=== PATIENT | female | born 1990 | race Caucasian/White ===

== ENCOUNTER 2017-12-09 05:46 | Emergency (ER) | payer OTHER, SELFPAY ==
[2017-12-09] MEDS ORDERED: Ketorolac Tromethamine 30 MG/ML VIAL ONE (06:18)
[2017-12-09] MEDS ORDERED: Ondansetron HCl/PF 4 MG/2 ML Vial ONE (06:18)
[2017-12-09 06:26] LABS: #Basophils 0.1 thou/uL (0.0-0.2); #Lymphocytes 0.6 thou/uL (1.20-3.40); #Monocytes 0.4 thou/uL (0.11-0.59); #Neutrophils 8.5 thou/uL (1.40-6.50); %Basophils 0.7 % (0.0-1.0); %Eosinophils 0.3 % (0.0-10.0); %Lymphocytes 5.8 % (21.0-51.0); %Monocytes 4.2 % (0.0-10.0); Hemoglobin 13.3 g/dL (12.0-16.0); Mean Corpuscular HGB CONC 32.5 g/dL (32.0-36.0); Mean Corpuscular Hemoglobin 26.2 pg (27.0-31.0); Mean Corpuscular Volume 80.7 fL (78.0-98.0); Mean Platelet Volume 6.9 fL (7.4-10.4); Platelet Count 295 thou/uL (130-400); RBC Distribution Width 17.4 % (11.5-14.5); Red Blood Cell (RBC) Count 5.08 mill/uL (4.20-5.40); White Blood Cell (WBC) Count 9.5 thou/uL (4.8-10.8)
[2017-12-09] MEDS ORDERED: Sodium Chloride 0.9% 1,000 ML BAG ONE (06:36)
[2017-12-09 06:44] LABS: ALT (SGPT) 31 U/L (8-55); AST (SGOT) 27 U/L (5-34); Albumin 4.5 g/dL (3.5-5.0); Alkaline Phosphatase 110 U/L (40-150); Anion Gap 15 mmol/L (10-20); BUN (Urea Nitrogen) 8 mg/dL (7.0-18.7); Bilirubin, Total 0.8 mg/dL (0.2-1.2); Calc. Creatinine Clearance 0 mL/min (70-130); Calcium 9.3 mg/dL (7.8-10.44); Carbon Dioxide 21 mmol/L (22-29); Chloride 108 mmol/L (98-107); Estimated GFR-MDRD 78; Globulin 3.8 g/dL (2.4-3.5); Glucose 116 mg/dL (70-105); Lipase 9 U/L (8-78); Protein, Total 8.3 g/dL (6.0-8.3); Sodium 140 mmol/L (136-145)
[2017-12-09] MEDS ORDERED: Midazolam HCl 10 mg/2 ml Vial ONE (06:51)
== END 2017-12-09 07:10 | disposition home or self-care (01) ==
LOC: MADERS 05:46
DX: K52.9 Noninfective gastroenteritis and colitis, unspecified (principal)
CPT/HCPCS: 80053; 83605; 83690; 85025; 96361; 96374; 96375; J1885; J2250; J2405; J7050

== ENCOUNTER 2018-09-25 21:26 | Emergency (ER) | payer MEDICAID, SELFPAY ==
[2018-09-25 21:57] LABS: Bilirubin Negative (Negative); Blood, Urine Large (Negative); Clarity Slightly Cloudy (Clear); Glucose, Urine (Dipstick) Negative (Negative); Leukocyte Small (Negative); Nitrite Negative (Negative); Protein, Urine (Dipstick) > or equal to 300 mg/dL (Neg-Trace); Urobilinogen 0.2 mg/dL (Less than 2)
[2018-09-25 22:00] LABS: Pregnancy Test - Urine (BHCG) Negative (Negative)
[2018-09-25] MEDS ORDERED: Morphine 4 MG/ML VIAL ONE (22:00)
[2018-09-25] MEDS ORDERED: Ondansetron ODT 4 MG TAB ONE (22:00)
[2018-09-25 22:01] LABS: Pregu Control Background? CLEAR/WHITE (CLR/WHITE); Pregu Control Bar Appear? YES (CONTROL BAR); Specific Gravity 1.015 (1.002-1.036)
[2018-09-25 22:04] LABS: RBC/HPF Greater than 50 HPF (0-3)
[2018-09-25 22:05] LABS: Bacteria/HPF 1+ HPF (None Seen); Squamous Epithelial 0-3 HPF (0-3)
[2018-09-25] MEDS ORDERED: cefTRIAXone\\ROCEPHIN 1 GM VIAL ONE (22:19)
== END 2018-09-25 22:35 | disposition home or self-care (01) ==
LOC: MADERS 21:26
DX: N12 Tubulo-interstitial nephritis, not specified as acute or chronic (principal); R11.0 Nausea
CPT/HCPCS: 81003; 81015; 81025; 96372; J0696; J2270; Q0162

== ENCOUNTER 2019-07-24 10:24 | Emergency (ER) | payer MEDICAID, SELFPAY ==
[2019-07-24] MEDS ORDERED: Acetaminophen 500 MG TAB ONE (11:13)
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
[2019-07-24] MEDS ORDERED: Ketorolac Tromethamine 30 MG/ML VIAL ONE (11:44)
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
== END 2019-07-24 12:10 | disposition home or self-care (01) ==
LOC: MADERS 10:24
DX: S00.03XA Contusion of scalp, initial encounter (principal); S60.221A Contusion of right hand, initial encounter; S50.11XA Contusion of right forearm, initial encounter; S40.012A Contusion of left shoulder, initial encounter; Y04.0XXA Assault by unarmed brawl or fight, initial encounter
CPT/HCPCS: 70450; 96372; J1885

== ENCOUNTER 2020-01-22 10:14 | Emergency (ER) | payer OTHER, SELFPAY ==
--- NOTE | 2020-01-22 11:47 | RAD ---
Portable frontal chest radiograph: 01/22/2020 COMPARISON: None HISTORY: Cough FINDINGS: Lungs are clear. Heart and mediastinal contours appear within normal limits. IMPRESSION: No acute findings.
[2020-01-22] MEDS ORDERED: Ibuprofen 600 MG TAB ONE (11:57)
[2020-01-22 12:15] LABS: #Basophils 0.1 thou/uL (0.0-0.2); #Lymphocytes 0.7 thou/uL (1.20-3.40); #Monocytes 0.6 thou/uL (0.11-0.59); #Neutrophils 4.5 thou/uL (1.40-6.50); %Eosinophils 0.1 % (0.0-10.0); %Lymphocytes 11.6 % (21.0-51.0); %Neutrophils 76.3 % (42.0-75.0); Hemoglobin 12.1 g/dL (12.0-16.0); Mean Corpuscular HGB CONC 30.7 g/dL (32.0-36.0); Mean Corpuscular Hemoglobin 26.2 pg (27.0-31.0); Mean Corpuscular Volume 85.3 fL (78.0-98.0); Platelet Count 237 thou/uL (130-400); RBC Distribution Width 13.7 % (11.5-14.5); White Blood Cell (WBC) Count 5.8 thou/uL (4.8-10.8)
[2020-01-22 12:26] LABS: ALT (SGPT) 13 U/L (8-55); AST (SGOT) 15 U/L (5-34); Alkaline Phosphatase 87 U/L (40-110); Anion Gap 15 mmol/L (10-20); BUN (Urea Nitrogen) 7 mg/dL (7.0-18.7); Bilirubin, Total 0.2 mg/dL (0.2-1.2); Calc. Creatinine Clearance 0 mL/min (70-130); Calcium 8.5 mg/dL (7.8-10.44); Carbon Dioxide 22 mmol/L (22-29); Chloride 103 mmol/L (98-107); Estimated GFR-MDRD Greater than 90; Globulin 3.5 g/dL (2.4-3.5); Glucose 95 mg/dL (70-105); Potassium 3.8 mmol/L (3.5-5.1); Protein, Total 7.5 g/dL (6.0-8.3); Sodium 136 mmol/L (136-145)
[2020-01-22 13:19] LABS: Pregnancy Test - Urine (BHCG) Negative (Negative); Pregu Control Background? CLEAR/WHITE (CLR/WHITE); Pregu Control Bar Appear? YES (CONTROL BAR); Specific Gravity 1.025 (1.002-1.036)
[2020-01-22 13:22] LABS: Bilirubin Negative (Negative); Blood, Urine Small (Negative); Clarity Clear (Clear); Glucose, Urine (Dipstick) Negative (Negative); Ketone, Urine Negative (Negative); Leukocyte Trace (Negative); Nitrite Negative (Negative); Protein, Urine (Dipstick) Negative (Neg-Trace); Specific Gravity, Urine 1.025 (1.005-1.030); Urobilinogen 0.2 mg/dL (Less than 2); pH, Urine 5.5 (5.0-9.0)
[2020-01-22 13:23] LABS: Bacteria/HPF Rare-Few HPF (None Seen); RBC/HPF 0-3 HPF (0-3)
[2020-01-23 12:54] LABS: SARS-CoV-2 by NAA DETECTED (NotDetected)
[2020-01-23 12:55] LABS: SARS-CoV-2 MS2 Positive; SARS-CoV-2 N Gene Positive; SARS-CoV-2 S Gene Positive; SARS-CoV-2 orf1ab Positive
== END 2020-01-22 14:05 | disposition home or self-care (01) ==
LOC: MADERS 10:14
DX: U07.1 COVID-19 (principal)
CPT/HCPCS: 36415; 71045; 80053; 81003; 81015; 81025; 83605; 85025; 87635; 87804; U0003

== ENCOUNTER 2020-01-27 20:09 | Emergency (ER) | payer SELFPAY ==
[2020-01-27] MEDS ORDERED: Sodium Chloride 0.9% 1,000 ML ONE (21:00)
[2020-01-27] MEDS ORDERED: Dexamethasone 10 MG/ML VIAL ONE (21:00)
[2020-01-27] MEDS ORDERED: Aspirin Chewable 81 MG TAB ONE (21:00)
[2020-01-27] MEDS ORDERED: Acetaminophen 500 MG TAB ONE (21:01)
[2020-01-27 21:04] LABS: #Basophils 0.1 thou/uL (0.0-0.2); #Lymphocytes 0.8 thou/uL (1.20-3.40); #Monocytes 0.3 thou/uL (0.11-0.59); #Neutrophils 1.9 thou/uL (1.40-6.50); %Basophils 2.2 % (0.0-1.0); %Eosinophils 0.1 % (0.0-10.0); %Lymphocytes 25.2 % (21.0-51.0); %Monocytes 8.9 % (0.0-10.0); %Neutrophils 63.7 % (42.0-75.0); Hemoglobin 12.9 g/dL (12.0-16.0); Mean Corpuscular HGB CONC 31.1 g/dL (32.0-36.0); Mean Corpuscular Hemoglobin 26.2 pg (27.0-31.0); Mean Corpuscular Volume 84.2 fL (78.0-98.0); Mean Platelet Volume 6.6 fL (7.4-10.4); Platelet Count 159 thou/uL (130-400); RBC Distribution Width 13.2 % (11.5-14.5); Red Blood Cell (RBC) Count 4.91 mill/uL (4.20-5.40)
[2020-01-27 21:19] LABS: ALT (SGPT) 16 U/L (8-55); AST (SGOT) 28 U/L (5-34); Albumin 4.1 g/dL (3.5-5.0); Alkaline Phosphatase 73 U/L (40-110); Anion Gap 17 mmol/L (10-20); BUN (Urea Nitrogen) 6 mg/dL (7.0-18.7); Bilirubin, Total 0.2 mg/dL (0.2-1.2); Calc. Creatinine Clearance 0 mL/min (70-130); Carbon Dioxide 26 mmol/L (22-29); Chloride 98 mmol/L (98-107); Estimated GFR-MDRD Greater than 90; Globulin 3.4 g/dL (2.4-3.5); Glucose 95 mg/dL (70-105); Potassium 3.3 mmol/L (3.5-5.1); Protein, Total 7.5 g/dL (6.0-8.3); Sodium 138 mmol/L (136-145)
[2020-01-27] MEDS ORDERED: Potassium Chloride 20 MEQ TAB ONE (21:27)
[2020-01-27] MEDS ORDERED: cefTRIAXone\\ROCEPHIN 1 GM VIAL ONE (21:45)
[2020-01-27] MEDS ORDERED: Sodium Chloride 0.9% 100 ML ONE (21:45)
--- NOTE | 2020-01-27 21:48 | RAD ---
Portable frontal chest radiograph: 01/27/2020 COMPARISON: 01/22/2020 HISTORY: Shortness of breath FINDINGS: There has been interval development of perihilar interstitial prominence with bibasilar den se airspace disease. No pneumothorax. No large volume pleural effusion. IMPRESSION: Interval development of perihilar and bibasilar interstitial prominence with significant new bibasilar airspace disease. Findings are suspicious for infectious pneumonitis or aspiration. Covid 19 is a possibility. A degree of pulmonary edema cannot be excluded.
== END 2020-01-27 23:00 | disposition short-term general hospital (02) ==
LOC: MADERS 20:09
DX: U07.1 COVID-19 (principal); J12.89 Other viral pneumonia; E87.6 Hypokalemia; Z79.51 Long term (current) use of inhaled steroids
CPT/HCPCS: 36415; 71045; 80053; 83605; 83880; 84484; 85025; 87040; 93005; 94760; 96365; 96375; J0696; J1100; J3490; J7050

== ENCOUNTER 2022-12-30 10:17 | Emergency (ER) | payer OTHER, SELFPAY ==
[2022-12-30] MEDS ORDERED: Ketorolac Tromethamine 30 MG/ML VIAL ONE (11:44)
[2022-12-30] MEDS ORDERED: Sodium Chloride 0.9% 1,000 ML ONE (11:44)
[2022-12-30 12:14] LABS: #Basophils 0.1 thou/uL (0.0-0.2); #Eosinphils 0.1 thou/uL (0.0-0.7); #Lymphocytes 2.2 thou/uL (1.20-3.40); #Monocytes 0.8 thou/uL (0.11-0.59); #Neutrophils 3.6 thou/uL (1.40-6.50); %Basophils 1.8 % (0.0-1.0); %Eosinophils 1.1 % (0.0-10.0); %Monocytes 11.2 % (0.0-10.0); Anisocytosis SLIGHT = 6-15 cells (100X) (0-5/hpf); Hematocrit 37.7 % (36.0-47.0); Hemoglobin 11.4 g/dL (12.0-16.0); Hypochromia SLIGHT = 6-15 cells (100X) (0-5/hpf); Mean Corpuscular HGB CONC 30.2 g/dL (32.0-36.0); Mean Corpuscular Hemoglobin 24.9 pg (27.0-31.0); Mean Corpuscular Volume 82.5 fl (78.0-98.0); Mean Platelet Volume 7.2 fL (7.4-10.4); Platelet Adequacy Comment Appears Adequate; Platelet Count 375 10x3/uL (130-400); Red Blood Cell (RBC) Count 4.57 mill/uL (4.20-5.40); White Blood Cell (WBC) Count 6.7 10x3/uL (4.8-10.8)
[2022-12-30 12:36] LABS: BUN (Urea Nitrogen) 10 mg/dL (7.0-18.7); Calc. Creatinine Clearance 0 mL/min (70-130); Calcium 9.4 mg/dL (7.6-10.4); Carbon Dioxide 27 mmol/L (22-29); Chloride 105 mmol/L (98-107); Estimated GFR 111; Glucose 77 mg/dL (70-105); Potassium 3.7 mmol/L (3.5-5.1); Sodium 141 mmol/L (136-145)
[2022-12-30 12:37] LABS: ALT (SGPT) 16 U/L (8-55); AST (SGOT) 20 U/L (5-34); Albumin 4.2 g/dL (3.5-5.0); Alkaline Phosphatase 88 U/L (40-110); Bilirubin, Total 0.4 mg/dL (0.2-1.2); Globulin 3.7 g/dL (2.4-3.5); Magnesium 2.4 mg/dL (1.6-2.6); Protein, Total 7.9 g/dL (6.0-8.3)
[2022-12-30 12:39] LABS: Anion Gap 13 mmol/L (10-20)
== END 2022-12-30 13:08 | disposition home or self-care (01) ==
LOC: MADERS 10:17
DX: R20.2 Paresthesia of skin (principal); D64.9 Anemia, unspecified; Z79.899 Other long term (current) drug therapy
CPT/HCPCS: 80053; 83735; 85025; 96374; J1885; J7050